=== PATIENT | male | born 1975 | race Caucasian/White ===

== ENCOUNTER → 2020-10-05 | Outpatient (CLI) | payer MEDICARE ==
[~2020-10-05] MED LIST: AMLODIPINE BESY10 MG PO; BUPRENORPHIN-N1 EACH SL; BUSPIRONE HCL30 MG PO; CIALIS20 MG PO; CRESTOR10 MG PO; EFFEXOR XR75 MG PO; LINZESS72 MCG PO; PEPCID20 MG PO; TESTOSTERONE CYPIONA TOP
[2020-10-05 10:23] LABS: RED BLOOD COUNT 5.61 M/UL (4.20-5.50); WHITE BLOOD COUNT 8.5 K/UL (4.5-11.0)
[2020-10-05 10:46] LABS: BUN/CREATININE RATIO 16 (0-10)
[2020-10-08 11:15] LABS: TESTOSTERONE, SERUM 554 ng/dL (264-916)
== END ==
LOC: LAB 09:14
PROVIDERS: Family Medicine
DX: N52.9 Male erectile dysfunction, unspecified (principal); E29.1 Testicular hypofunction; R53.83 Other fatigue
CPT/HCPCS: 36415; 80053; 84402; 84403; 85025

== ENCOUNTER 2021-01-21 12:13 | Observation (INO) | payer MEDICARE ==
[~2021-01-21] VITALS: Ht 172.7 cm; Wt 92.5 kg
[2021-01-21 13:27] LABS: HEMOGLOBIN 19.3 gm/dl (14.0-17.5); RED BLOOD COUNT 6.04 M/UL (4.20-5.50); WHITE BLOOD COUNT 24.2 K/UL (4.5-11.0)
[2021-01-21 13:44] LABS: BUN/CREATININE RATIO 15 (0-10)
[2021-01-21] MEDS ORDERED: BUPRENORPHIN-N1 EACH SL (16:02)
[2021-01-21] MEDS ORDERED: LINZESS72 MCG PO (16:03)
[2021-01-21] MEDS ORDERED: TESTOSTERONE CYPIONA TOP (16:05)
[2021-01-21] MEDS ORDERED: BUSPIRONE HCL30 MG PO (16:06)
[2021-01-21] MEDS ORDERED: AMLODIPINE BESY10 MG PO (16:06)
[2021-01-21] MEDS ORDERED: EFFEXOR XR75 MG PO (16:06)
[2021-01-21] MEDS ORDERED: PEPCID20 MG PO (16:07)
[2021-01-21] MEDS ORDERED: CIALIS20 MG PO (16:07)
[2021-01-21] MEDS ORDERED: CRESTOR10 MG PO (16:07)
== END 2021-01-22 10:12 | disposition home or self-care (01) ==
LOC: ER1 12:13 → CDU 15:12 → MED SURG 4 15:12
PROVIDERS: Physician Assistant Medical; ADMIT Surgery
PROC: 0DTJ4ZZ Resection of Appendix, Percutaneous Endoscopic Approach (ICD-10-PCS; principal; 2021-01-21 18:36)
DX: K35.80 Unspecified acute appendicitis (principal); K21.9 Gastro-esophageal reflux disease without esophagitis; I10 Essential (primary) hypertension; E78.5 Hyperlipidemia, unspecified; F17.210 Nicotine dependence, cigarettes, uncomplicated; Z20.822 Contact with and (suspected) exposure to COVID-19
CPT/HCPCS: 80053; 81001; 83605; 85025; 87040; 96374; 96375; 96376; 99285; G0378; J1100; J1170; J2250; J2270; J2405; J2543; J2704; J2710; J3010; J7120; Q9967; U0002

== ENCOUNTER → 2021-10-05 | Outpatient (CLI) | payer MEDICARE | LOC: KOH-I 15:30 | DX: R91.1 Solitary pulmonary nodule (principal); K76.89 Other specified diseases of liver; J84.10 Pulmonary fibrosis, unspecified | CPT/HCPCS: 71250 ==